=== PATIENT | male | born 1995 | race Hispanic/Latino ===

== ENCOUNTER 2018-06-28 09:46 | Emergency (ER) | payer OTHER ==
[2018-06-28] MEDS ORDERED: Adacel (T-DAP) 0.5 ML VIAL ONE (10:04)
[2018-06-28] MEDS ORDERED: Lidocaine 1% w/Epinephrine 1:100K 20 ML VIAL ONE ×2 (10:10→10:18)
[2018-06-28] MEDS ORDERED: Bacitracin Zinc 1 Packet ONE (11:45)
== END 2018-06-28 11:50 | disposition home or self-care (01) ==
LOC: ERS 09:46
DX: S51.811A Laceration without foreign body of right forearm, initial encounter (principal); W26.8XXA Contact with other sharp object(s), not elsewhere classified, initial encounter
CPT/HCPCS: 12002; 90471; 90715; J2001